=== PATIENT | female | born 1970 | race Caucasian/White ===

== ENCOUNTER 2023-02-01 10:40 | Emergency (ER) | payer SELFPAY ==
[~2023-02-01] VITALS: Ht 162.6 cm; Wt 108.9 kg
[2023-02-01 10:40] VITALS: BP_SYST 117; PULSE 80; RESP 19; TEMP 98.8; O2SAT 100
--- NOTE | 2023-02-01 10:40 | NUR ---
BROUGHT IN BY [facility] [address], PLACED IN BED #5 AND TRIAGED. REPORT GIVEN TO PIPO
[2023-02-01] MEDS ORDERED: levETIRAcetam 1,000 MG in NS 90 ML IV ONE (11:00)
[2023-02-01 11:19] LABS: BASOPHILS # (AUTO) 0.1 K/uL (0.0-0.2); BASOPHILS % (AUTO) 0.9 % (0.0-2.0); EOSINOPHILS # (AUTO) 0.2 K/uL (0.0-0.4); EOSINOPHILS % (AUTO) 2.4 % (0.0-4.0); HEMATOCRIT 38.2 % (36-48); HEMOGLOBIN 12.4 g/dL (12.0-16.0); LYMPHOCYTES # (AUTO) 1.9 K/uL (1.0-5.5); LYMPHOCYTES % (AUTO) 22.5 % (20.5-51.5); MEAN CORPUSCULAR HEMOGLOBIN 26 pg (27-31); MEAN CORPUSCULAR HGB CONC 33 % (32-36); MEAN CORPUSCULAR VOLUME 81 fL (79.0-98.0); MONOCYTES # (AUTO) 0.6 K/uL (0.0-1.0); MONOCYTES % (AUTO) 6.7 % (1.7-9.3); NEUTROPHILS # (AUTO) 5.7 K/uL (1.8-7.7); NEUTROPHILS % (AUTO) 67.5 % (40.0-70.0); PLATELET COUNT (AUTO) 210 K/uL (130-430); RED BLOOD CELL COUNT(AUTO) 4.72 MIL/uL (4.2-6.2); RED CELL DISTRIBUTION WIDTH 14.5 % (9.0-15.0); WHITE BLOOD COUNT (AUTO) 8.4 K/uL (4.8-10.8)
[2023-02-01 11:27] VITALS: BP_SYST 137; PULSE 88; RESP 22; TEMP 98.1; O2SAT 55
[2023-02-01 11:30] LABS: ANION GAP 9 (5-15); CALCIUM 8.5 mg/dL (8.4-11.0); CHLORIDE 106 mmol/L (98-107); CREATININE 0.67 mg/dL (0.55-1.30); GFR AFRICAN AMERICAN 115 mL/min (>90); GLUCOSE 86 mg/dL (74-106); UREA NITROGEN, BLOOD 12 mg/dL (8-21)
--- NOTE | 2023-02-01 11:31 | NUR ---
Patient seen by MD. Patient has labs drawn and is escorted to radiology at this time.
[2023-02-01 11:33] LABS: PROTHROMBIN TIME 10.4 SECS (9.5-12.5)
[2023-02-01 11:37] LABS: ALANINE AMINOTRANSFERASE 27 U/L (12-78); ALBUMIN 3.3 g/dL (3.4-4.8); ASPARTATE AMINOTRANSFERASE 25 U/L (10-37); TOTAL BILIRUBIN 0.6 mg/dL (0.0-1.0)
[2023-02-01 11:41] LABS: ACETONE, SERUM NEGATIVE (NEGATIVE)
[2023-02-01 12:03] LABS: CREATINE KINASE MB 3.2 ng/mL (0-3.6)
[2023-02-01 12:26] LABS: BILIRUBIN,URINE NEGATIVE (NEGATIVE); BLOOD, URINE NEGATIVE (NEGATIVE); COLOR,URINE YELLOW (YELLOW); GLUCOSE,URINE NEGATIVE (NEGATIVE); KETONES,URINE NEGATIVE (NEGATIVE); LEUKOCYTE ESTERASE ,URINE NEGATIVE (NEGATIVE); NITRITE, URINE NEGATIVE (NEGATIVE); PH,URINE 5.5 (5.0-8.0); PROTEIN URINE NEGATIVE (NEGATIVE); UROBILINOGEN,URINE 0.2 (0.2-1.0)
[2023-02-01 12:27] LABS: CLARITY/URINE CLEAR (CLEAR)
--- NOTE | 2023-02-01 12:30 | NUR ---
MD reevaluated patient. Patient stated that she is feeling better at this time.
[2023-02-01] MEDS ORDERED: LEVE500T9 PO (12:43)
--- NOTE | 2023-02-01 13:13 | NUR ---
Patient given written and verbal discharge instructions and verbalizes understanding. ER MD discussed with patient the results and treatment provided. Patient in stable condition. ID arm band removed. IV catheter removed intact and dressing applied, no active bleeding. Rx of keppra given. Patient educated on pain management and to follow up with PMD. Pain Scale 2/10. Opportunity for questions provided and answered. Medication side effect fact sheet provided.
[2023-02-01] MEDS ORDERED: LORazepam 1 MG TABLET PO ONE (13:30)
== END 2023-02-01 13:13 | disposition home or self-care (01) ==
LOC: EDBD 10:40 → SED 10:40
DX: R56.9 Unspecified convulsions (principal); R51.9 Headache, unspecified; R53.1 Weakness; Z88.5 Allergy status to narcotic agent; Z79.899 Other long term (current) drug therapy
CPT/HCPCS: 99285; 96365; 70450; 71045; 80053; 82009; 82550; 82553; 85025; 85610; 85730; 84484; 36415; 76376; 81025; 83605; 81003; J1953

== ENCOUNTER 2023-02-02 13:46 | Emergency (ER) | payer SELFPAY ==
[~2023-02-02] VITALS: Ht 162.6 cm; Wt 109.3 kg
[~2023-02-02 13:46] MED LIST: LEVE500T9 PO
[2023-02-02 13:52] VITALS: BP_SYST 148; PULSE 80; RESP 18; TEMP 97.2; O2SAT 97
[2023-02-02] MEDS ORDERED: LORazepam 1 MG TABLET PO ONE (14:15)
[2023-02-02] MEDS ORDERED: levETIRAcetam 500 MG TABLET PO ONE (14:15)
[2023-02-02 14:41] LABS: BASOPHILS # (AUTO) 0.1 K/uL (0.0-0.2); BASOPHILS % (AUTO) 0.9 % (0.0-2.0); EOSINOPHILS # (AUTO) 0.2 K/uL (0.0-0.4); EOSINOPHILS % (AUTO) 2.6 % (0.0-4.0); HEMATOCRIT 40.7 % (36-48); HEMOGLOBIN 13.2 g/dL (12.0-16.0); LYMPHOCYTES # (AUTO) 2.4 K/uL (1.0-5.5); LYMPHOCYTES % (AUTO) 27.5 % (20.5-51.5); MEAN CORPUSCULAR HEMOGLOBIN 26 pg (27-31); MEAN CORPUSCULAR HGB CONC 32 % (32-36); MEAN CORPUSCULAR VOLUME 82 fL (79.0-98.0); MONOCYTES # (AUTO) 0.5 K/uL (0.0-1.0); MONOCYTES % (AUTO) 5.8 % (1.7-9.3); NEUTROPHILS # (AUTO) 5.6 K/uL (1.8-7.7); NEUTROPHILS % (AUTO) 63.2 % (40.0-70.0); PLATELET COUNT (AUTO) 241 K/uL (130-430); RED BLOOD CELL COUNT(AUTO) 4.99 MIL/uL (4.2-6.2); RED CELL DISTRIBUTION WIDTH 14.9 % (9.0-15.0); WHITE BLOOD COUNT (AUTO) 8.9 K/uL (4.8-10.8)
[2023-02-02 14:56] LABS: ALBUMIN 3.6 g/dL (3.4-4.8); CALCIUM 8.8 mg/dL (8.4-11.0); CREATININE 0.74 mg/dL (0.55-1.30); TOTAL BILIRUBIN 0.4 mg/dL (0.0-1.0)
[2023-02-02 17:24] VITALS: BP_SYST 148; PULSE 80; RESP 18; TEMP 97.2; O2SAT 97
== END 2023-02-02 17:18 | disposition home or self-care (01) ==
LOC: SED 13:46
DX: R56.9 Unspecified convulsions (principal); Z88.5 Allergy status to narcotic agent; Z79.899 Other long term (current) drug therapy
CPT/HCPCS: 36415; 80053; 83605; 84703; 85025; 99283

== ENCOUNTER 2023-02-08 13:55 | Emergency (ER) | payer OTHER ==
[~2023-02-08] VITALS: Ht 162.6 cm; Wt 109.3 kg
[2023-02-08 13:59] VITALS: BP_SYST 178; PULSE 72; RESP 20; TEMP 98.3; O2SAT 98
[2023-02-08] MEDS ORDERED: LABETALOL HCL 20 MG/4 ML CARTRIDGE IVP ONE (14:30)
[2023-02-08 14:58] LABS: BASOPHILS # (AUTO) 0.1 K/uL (0.0-0.2); EOSINOPHILS # (AUTO) 0.2 K/uL (0.0-0.4); EOSINOPHILS % (AUTO) 2.4 % (0.0-4.0); HEMOGLOBIN 12.2 g/dL (12.0-16.0); LYMPHOCYTES # (AUTO) 2.2 K/uL (1.0-5.5); MEAN CORPUSCULAR HEMOGLOBIN 26 pg (27-31); MEAN CORPUSCULAR HGB CONC 32 % (32-36); MEAN CORPUSCULAR VOLUME 82 fL (79.0-98.0); MONOCYTES # (AUTO) 0.6 K/uL (0.0-1.0); MONOCYTES % (AUTO) 5.6 % (1.7-9.3); NEUTROPHILS # (AUTO) 7.2 K/uL (1.8-7.7); PLATELET COUNT (AUTO) 220 K/uL (130-430); RED BLOOD CELL COUNT(AUTO) 4.66 MIL/uL (4.2-6.2); RED CELL DISTRIBUTION WIDTH 14.3 % (9.0-15.0); WHITE BLOOD COUNT (AUTO) 10.2 K/uL (4.8-10.8)
[2023-02-08 15:12] LABS: ANION GAP 8 (5-15); CALCIUM 8.7 mg/dL (8.4-11.0); CARBON DIOXIDE 27 mmol/L (23-29); CHLORIDE 104 mmol/L (98-107); CREATININE 0.76 mg/dL (0.55-1.30); GFR AFRICAN AMERICAN 102 mL/min (>90); GLUCOSE 77 mg/dL (74-106); POTASSIUM 3.7 mmol/L (3.5-5.1); SODIUM SERUM 139 mmol/L (136-145); UREA NITROGEN, BLOOD 16 mg/dL (8-21)
[2023-02-08 15:16] LABS: SERUM HCG (QUALITATIVE) NEGATIVE (NEGATIVE)
[2023-02-08 15:19] LABS: ALANINE AMINOTRANSFERASE 24 U/L (12-78); ALBUMIN 3.5 g/dL (3.4-4.8); ASPARTATE AMINOTRANSFERASE 27 U/L (10-37); TOTAL BILIRUBIN 0.5 mg/dL (0.0-1.0); TOTAL PROTEIN, SERUM 7.1 g/dL (6.4-8.3)
[2023-02-08 15:24] LABS: GFR NON AFRICAN-AMERICAN 85 mL/min (>90)
[2023-02-08 19:36] VITALS: BP_SYST 165; PULSE 95; RESP 20; TEMP 98.3; O2SAT 98
== END 2023-02-08 19:36 | disposition home or self-care (01) ==
LOC: SED 13:55
DX: G44.209 Tension-type headache, unspecified, not intractable (principal); I10 Essential (primary) hypertension; Z91.148 Patient's other noncompliance with medication regimen for other reason; Z88.5 Allergy status to narcotic agent; Z79.899 Other long term (current) drug therapy
CPT/HCPCS: 36415; 70450-TC; 71045; 76376; 80053; 83880; 84484; 84703; 85025; 93005; 96374; 99285